=== PATIENT | female | born 1990 | race American Indian/Alaskan Native ===

== ENCOUNTER 2020-06-03 15:10 | Outpatient (CLI) | payer BC ==
--- NOTE | 2020-06-03 16:06 | Mammography Report ---
DIGITAL DIAGNOSTIC MAMMOGRAM WITH CAD, -- 06/03/2020 INDICATION: Unspecified lump in right breast, upper outer quadrant. TECHNIQUE: Digital bilateral mammographic imaging was performed. This examination was interpreted with the benefit of Computer-aided Detection analysis. COMPARISON: None available. FINDINGS: Breast Density: There are scattered areas of fibroglandular density. There is no evidence of dominant mass, suspicious calcifications or architectural distortion in the l eft breast. On the right MLO view an 8 mm asymmetry is noted. No other significant abnormalities of t he right breast. IMPRESSION: Indeterminate right breast asymmetry. A diagnostic right mammogram with spot compression views and a limited right breast ultrasound are recommended for further evaluation. Recommended Follow-Up: Special View: Spot BI-RADS Category 0: Incomplete. Needs additional imaging evaluation and/or prior mammograms for joi rison. A "normal" or negative report should not discourage follow up or biopsy of a clinically significant f inding. A written summary of these findings will be mailed to the patient. The patient will be entered into a mammography reporting system which will generate a reminder letter for the patient's next appointmen t at the appropriate interval. According to the [employer], yearly mammograms are recommended starting at age 40 and continuing as long as a woman is in good health. Breast MRI is recommended for women with an michelle roximately 20-25% or greater lifetime risk of breast cancer, including women with a strong family his tory of breast or ovarian cancer and women who have been treated for Hodgkin's disease. Signer Name: Dexter Frias MD Signed: 06/03/2020 4:01 PM Workstation Name: [id number]
== END 2020-06-03 15:11 | disposition home or self-care (01) ==
LOC: SPVWC 15:10
PROVIDERS: ATTEND Obstetrics & Gynecology
DX: N64.89 Other specified disorders of breast (principal); N63.11 Unspecified lump in the right breast, upper outer quadrant
CPT/HCPCS: 77066